=== PATIENT | male | born 1940 | race Caucasian/White ===

== ENCOUNTER 2021-01-17 23:12 | Emergency (ER) | payer OTHER ==
[~2021-01-17] VITALS: Ht 177.8 cm; Wt 80.7 kg
[2021-01-18 01:00] VITALS: BP 138/64
== END 2021-01-18 01:00 | disposition home or self-care (01) ==
LOC: FSED 23:40
DX: E11.65 Type 2 diabetes mellitus with hyperglycemia (principal); I10 Essential (primary) hypertension; J44.9 Chronic obstructive pulmonary disease, unspecified; I50.9 Heart failure, unspecified; Z86.73 Personal history of transient ischemic attack (TIA), and cerebral infarction without residual deficits
CPT/HCPCS: 80048; 85025; 99283

== ENCOUNTER 2021-02-27 18:04 | Emergency (ER) | payer OTHER ==
[~2021-02-27] VITALS: Ht 177.8 cm; Wt 80.7 kg
[2021-02-27] MEDS ORDERED: HYDROCODONE/APAP 10MG-325MG TAB PO ONE (19:45)
[2021-02-27 22:04] VITALS: BP 127/58
== END 2021-02-27 22:21 | disposition home or self-care (01) ==
LOC: ER 18:45
DX: S46.912A Strain of unspecified muscle, fascia and tendon at shoulder and upper arm level, left arm, initial encounter (principal); M25.552 Pain in left hip; W01.0XXA Fall on same level from slipping, tripping and stumbling without subsequent striking against object, initial encounter; Y93.01 Activity, walking, marching and hiking; Y92.008 Other place in unspecified non-institutional (private) residence as the place of occurrence of the external cause; I10 Essential (primary) hypertension; E11.9 Type 2 diabetes mellitus without complications; E78.5 Hyperlipidemia, unspecified; K21.9 Gastro-esophageal reflux disease without esophagitis; I51.7 Cardiomegaly; J90 Pleural effusion, not elsewhere classified; Z86.73 Personal history of transient ischemic attack (TIA), and cerebral infarction without residual deficits
CPT/HCPCS: 70450; 71045; 72125; 73020; 93005; 99284